=== PATIENT | male | born 1930 | race Caucasian/White ===

== ENCOUNTER → 2016-03-27 | Outpatient (CLI) | payer MEDICARE, OTHER ==
[~2016-03-27] MED LIST: ACET-2469 PO; ALLO300T2 PO; CARV3.122 PO; CHLO473M2 MM; FURO40TA4 PO; GABA-488 PO; LEVO75TA6 PO; MULT-35 PO; NF-ESOM40C PO; NIAC-4 PO; OMEG-105 PO; POTA10TA PO; RANI150T11 PO; RANI150T90 PO; SIMV20TA3 PO; SPIR25TA3 PO; WARF-48 PO
--- NOTE | 2016-03-27 11:18 | Diagnostic Imaging Report ---
3 views of the right toes. 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 No prior studies are available for comparison. FINDINGS: There is a marker at site of an ulcer at the dorsal aspect of the second toe at the level of the head of the middle phalanx. There is a flexion deformity at the DIP joint which limits evaluation of the distal phalanx on the AP and oblique projections. No definite bone destruction is seen. There are degenerative changes in the interphalangeal joints and the first MTP joint. No acute fracture or dislocation seen. IMPRESSION: Limited evaluation due to flexion deformities at the toes with no definite bone destruction or periosteal reaction seen. Dictated by: Dictated on workstation # [id number]
== END ==
LOC: RAD 10:29
PROVIDERS: ATTEND Internal Medicine
DX: L97.512 Non-pressure chronic ulcer of other part of right foot with fat layer exposed (principal); E11.621 Type 2 diabetes mellitus with foot ulcer; I70.235 Atherosclerosis of native arteries of right leg with ulceration of other part of foot
CPT/HCPCS: 73660

== ENCOUNTER 2016-05-01 09:11 | Outpatient (RCR) | payer MEDICARE, OTHER ==
[2016-05-05] MEDS ORDERED: NF-ESOM40C PO (10:59)
[2016-05-05] MEDS ORDERED: NIAC-4 PO (10:59)
[2016-05-05] MEDS ORDERED: OMEG-105 PO (10:59)
[2016-05-05] MEDS ORDERED: ALLO300T2 PO (10:59)
[2016-05-05] MEDS ORDERED: GABA-488 PO ×2 (10:59)
[2016-05-05] MEDS ORDERED: SIMV20TA3 PO (10:59)
[2016-05-05] MEDS ORDERED: CARV3.122 PO (10:59)
[2016-05-05] MEDS ORDERED: LEVO75TA6 PO (10:59)
[2016-05-05] MEDS ORDERED: FURO40TA4 PO (10:59)
[2016-05-05] MEDS ORDERED: MULT-35 PO (10:59)
[2016-05-05] MEDS ORDERED: RANI150T11 PO (10:59)
[2016-05-05] MEDS ORDERED: CHLO473M2 MM (10:59)
[2016-05-05] MEDS ORDERED: ACET-2469 PO (10:59)
[2016-05-05] MEDS ORDERED: POTA10TA PO (10:59)
[2016-05-05] MEDS ORDERED: RANI150T90 PO (10:59)
[2016-05-05] MEDS ORDERED: SPIR25TA3 PO (10:59)
[2016-05-05] MEDS ORDERED: WARF-48 PO ×2 (10:59)
== END 2016-05-11 16:00 | disposition home or self-care (01) ==
LOC: WOUNDCARE 09:11
PROVIDERS: ATTEND Internal Medicine
DX: E11.621 Type 2 diabetes mellitus with foot ulcer (principal); L97.512 Non-pressure chronic ulcer of other part of right foot with fat layer exposed; I70.235 Atherosclerosis of native arteries of right leg with ulceration of other part of foot
CPT/HCPCS: 11042; 73660; 87070; 87075; 87205

== ENCOUNTER 2016-05-04 18:19 | Inpatient (IN) | payer MEDICARE, OTHER ==
[~2016-05-04] VITALS: Ht 188 cm; Wt 110.9 kg
--- OUTSIDE RECORDS SUMMARY | 2016-05-04 18:23 | XMS REPORT | Continuity of Care Document ---
Author Author [facility] Organization [facility] Address Unknown Phone Unavailable Allergies Active Description Code Type Severity Reaction Onset Reported/Identified Relationship to Patient Clinical Status Yes diltiazem HCl [id number] Drug Allergy Unknown N/A 02/28/2011 Medications Problems Date Dx Coded Attending Type Code Diagnosis Diagnosed By 02/28/2011 Ot 528.9 ORAL SOFT TISSUE DIS NEC 02/28/2011 Ot V58.61 ANTICOAGULANTS,LT,CURRENT USE 02/28/2011 Ot V58.66 LONG-TERM (CURRENT) USE OF ASPIRIN 07/04/2014 Ot 429.3 07/04/2014 Ot 518.0 07/04/2014 Ot 786.2 07/04/2014 Ot 287.5 07/04/2014 Ot V58.69 07/04/2014 Ot 414.8 07/04/2014 Ot 427.31 07/04/2014 Ot 428.0 07/04/2014 Ot 285.9 07/04/2014 Ot 429.3 07/04/2014 Ot 518.0 07/04/2014 Ot 786.2 07/04/2014 Ot 287.5 07/04/2014 Ot V58.69 07/04/2014 Ot 414.8 07/04/2014 Ot 427.31 07/04/2014 Ot 428.0 07/04/2014 Ot 285.9 08/04/2014 NORA ROD CRANE SERVICE TECHNICIAN Ot 429.3 08/04/2014 NORA ROD CRANE SERVICE TECHNICIAN Ot 780.60 08/04/2014 NORA ROD CRANE SERVICE TECHNICIAN Ot 786.2 08/09/2014 NORA ROD CRANE SERVICE TECHNICIAN Ot 429.3 08/09/2014 NORA ROD CRANE SERVICE TECHNICIAN Ot 780.60 08/09/2014 NORA ROD CRANE SERVICE TECHNICIAN Ot 786.2 08/21/2014 DIAMOND AREVALO, BROOKLYN Myers Ot 486 09/05/2014 BROOKLYN FIELDS MD Ot 486 10/11/2014 DIAMOND AREVALO, BROOKLYN Myers Ot 786.50 10/11/2014 BROOKLYN FIELDS MD Ot E000.8 10/11/2014 BROOKLYN FIELDS MD Ot E888.9 11/02/2014 BROOKLYN FIELDS MD Ot 786.50 11/02/2014 BROOKLYN FIELDS MD Ot E000.8 11/02/2014 BROOKLYN FIELDS MD Ot E888.9 11/22/2014 BROOKLYN FIELDS MD Ot 429.3 11/22/2014 BROOKLYN FIELDS MD Ot 511.9 12/15/2014 BROOKLYN FIELDS MD Ot 429.3 12/15/2014 BROOKLYN FIELDS MD Ot 511.9 08/17/2015 BROOKLYN FIELDS MD Ot R05 COUGH 09/05/2015 BROOKLYN FIELDS MD Ot R05 COUGH 10/30/2015 BROOKLYN FIELDS MD Ot R05 COUGH 12/12/2015 Ot 285.9 ANEMIA NOS 12/12/2015 NORA ROD CRANE SERVICE TECHNICIAN Ot 429.3 CARDIOMEGALY 12/12/2015 NORA ROD CRANE SERVICE TECHNICIAN Ot 780.60 FEVER, UNSPECIFIED 12/12/2015 NORA ROD CRANE SERVICE TECHNICIAN Ot 786.2 COUGH 12/12/2015 BROOKLYN FIELDS MD Ot 486 PNEUMONIA, ORGANISM NOS 12/12/2015 BROOKLYN FIELDS MD Ot 786.50 CHEST PAIN NOS 12/12/2015 BROOKLYN FIELDS MD Ot E000.8 OTHER EXTERNAL CAUSE STATUS 12/12/2015 BROOKLYN FIELDS MD Ot E888.9 FALL NOS 12/12/2015 BROOKLYN FIELDS MD Ot 793.19 OTHER NONSPECIFIC ABNORMAL FINDING OF FREDIS 12/12/2015 BROOKLYN FIELDS MD Ot 429.3 CARDIOMEGALY 12/12/2015 BROOKLYN FIELDS MD Ot 511.9 PLEURAL EFFUSION NOS 12/12/2015 BROOKLYN FIELDS MD Ot R05 COUGH 01/03/2016 ANITRA SHI Ot J98.11 ATELECTASIS 01/03/2016 ANITRA SHI Ot R05 COUGH 01/03/2016 ANITRA SHI Ot R07.89 OTHER CHEST PAIN 01/03/2016 ANITRA SHI Ot Z91.81 HISTORY OF FALLING 01/04/2016 Ot 285.9 ANEMIA NOS 01/04/2016 NORA ROD CRANE SERVICE TECHNICIAN Ot 429.3 CARDIOMEGALY 01/04/2016 NORA ROD CRANE SERVICE TECHNICIAN Ot 780.60 FEVER, UNSPECIFIED 01/04/2016 NORA ROD CRANE SERVICE TECHNICIAN Ot 786.2 COUGH 01/04/2016 BROOKLYN FIELDS MD Ot 486 PNEUMONIA, ORGANISM NOS 01/04/2016 BROOKLYN FIELDS MD Ot 786.50 CHEST PAIN NOS 01/04/2016 BROOKLYN FIELDS MD Ot E000.8 OTHER EXTERNAL CAUSE STATUS 01/04/2016 BROOKLYN FIELDS MD Ot E888.9 FALL NOS 01/04/2016 BROOKLYN FIELDS MD Ot 793.19 OTHER NONSPECIFIC ABNORMAL FINDING OF FREDIS 01/04/2016 BROOKLYN FIELDS MD Ot 429.3 CARDIOMEGALY 01/04/2016 BROOKLYN FIELDS MD Ot 511.9 PLEURAL EFFUSION NOS 01/04/2016 BROOKLYN FIELDS MD Ot R05 COUGH 01/04/2016 LAITH SHIEN L Ot J98.11 ATELECTASIS 01/04/2016 ANITRA SHI L Ot R05 COUGH 01/04/2016 ANITRA SHI Ot R07.89 OTHER CHEST PAIN 01/04/2016 ANITRA SHI L Ot Z91.81 HISTORY OF FALLING 01/08/2016 LAITH SHIEN L Ot J98.11 ATELECTASIS 01/08/2016 LAITH SHIEN L Ot R05 COUGH 01/08/2016 LAITH SHIEN L Ot R07.89 OTHER CHEST PAIN 01/08/2016 LAITH SHIEN L Ot Z91.81 HISTORY OF FALLING 01/08/2016 LAITH SHIEN L Ot J98.11 ATELECTASIS 01/08/2016 LAITH SHIEN L Ot R05 COUGH 01/08/2016 LAITH SHIEN L Ot R07.89 OTHER CHEST PAIN 01/08/2016 LAITH SHIEN L Ot Z91.81 HISTORY OF FALLING 01/11/2016 Ot 285.9 ANEMIA NOS 01/11/2016 NORA ROD CRANE SERVICE TECHNICIAN Ot 429.3 CARDIOMEGALY 01/11/2016 NORA ROD CRANE SERVICE TECHNICIAN Ot 780.60 FEVER, UNSPECIFIED 01/11/2016 NORA ROD CRANE SERVICE TECHNICIAN Ot 786.2 COUGH 01/11/2016 BROOKLYN FIELDS MD Ot 486 PNEUMONIA, ORGANISM NOS 01/11/2016 BROOKLYN FIELDS MD Ot 786.50 CHEST PAIN NOS 01/11/2016 BROOKLYN FIELDS MD Ot E000.8 OTHER EXTERNAL CAUSE STATUS 01/11/2016 BROOKLYN FIELDS MD Ot E888.9 FALL NOS 01/11/2016 BROOKLYN FIELDS MD Ot 793.19 OTHER NONSPECIFIC ABNORMAL FINDING OF FREDIS 01/11/2016 BROOKLYN FIELDS MD Ot 429.3 CARDIOMEGALY 01/11/2016 BROOKLYN FIELDS MD Ot 511.9 PLEURAL EFFUSION NOS 01/11/2016 BROOKLYN FIELDS MD Ot R05 COUGH 01/11/2016 ANITRA SHI Ot J98.11 ATELECTASIS 01/11/2016 ANITRA SHI Ot R05 COUGH 01/11/2016 ANITRA SHI Ot R07.89 OTHER CHEST PAIN 01/11/2016 ANITRA SHI Ot Z91.81 HISTORY OF FALLING 01/14/2016 ANITRA SHI Ot J18.9 PNEUMONIA, UNSPECIFIED ORGANISM 01/14/2016 ANITRA SHI Ot J90 PLEURAL EFFUSION, NOT ELSEWHERE CLASSIFI 01/24/2016 ANITRA SHI Ot J98.11 ATELECTASIS 01/24/2016 ANITRA SHI Ot R05 COUGH 01/24/2016 ANITRA SHI Ot R07.89 OTHER CHEST PAIN 01/24/2016 ANITRA SHI Ot Z91.81 HISTORY OF FALLING 02/06/2016 ANITRA SHI Ot J18.9 PNEUMONIA, UNSPECIFIED ORGANISM 02/06/2016 ANITRA SHI Ot J90 PLEURAL EFFUSION, NOT ELSEWHERE CLASSIFI 02/19/2016 ANITRA SHI Ot J98.11 ATELECTASIS 02/19/2016 ANITRA SHI Ot R05 COUGH 02/19/2016 ANITRA SHI Ot R07.89 OTHER CHEST PAIN 02/19/2016 ANITRA SHI Ot Z91.81 HISTORY OF FALLING 02/19/2016 ANITRA SHI Ot J18.9 PNEUMONIA, UNSPECIFIED ORGANISM 02/19/2016 ANITRA SHI Ot J90 PLEURAL EFFUSION, NOT ELSEWHERE CLASSIFI 03/27/2016 Ot 285.9 ANEMIA NOS 03/27/2016 NORA ROD CRANE SERVICE TECHNICIAN Ot 429.3 CARDIOMEGALY 03/27/2016 MARCEL, NORA R CRANE SERVICE TECHNICIAN Ot 780.60 FEVER, UNSPECIFIED 03/27/2016 NORA ROD CRANE SERVICE TECHNICIAN Ot 786.2 COUGH 03/27/2016 BROOKLYN FIELDS MD Ot 486 PNEUMONIA, ORGANISM NOS 03/27/2016 BROOKLYN FIELDS MD Ot 786.50 CHEST PAIN NOS 03/27/2016 BROOKLYN FIELDS MD Ot E000.8 OTHER EXTERNAL CAUSE STATUS 03/27/2016 BROOKLYN FIELDS MD Ot E888.9 FALL NOS 03/27/2016 BROOKLYN FIELDS MD Ot 793.19 OTHER NONSPECIFIC ABNORMAL FINDING OF FREDIS 03/27/2016 BROOKLYN FIELDS MD Ot 429.3 CARDIOMEGALY 03/27/2016 BROOKLYN FIELDS MD Ot 511.9 PLEURAL EFFUSION NOS 03/27/2016 BROOKLYN FIELDS MD Ot R05 COUGH 03/27/2016 ANITRA SHI Ot J98.11 ATELECTASIS 03/27/2016 ANITRA SHI Ot R05 COUGH 03/27/2016 ANITRA SHI Ot R07.89 OTHER CHEST PAIN 03/27/2016 ANITRA SHI Ot Z91.81 HISTORY OF FALLING 03/27/2016 ANITRA SHI Ot J18.9 PNEUMONIA, UNSPECIFIED ORGANISM 03/27/2016 ANITRA SHI Ot J90 PLEURAL EFFUSION, NOT ELSEWHERE CLASSIFI 04/17/2016 BROOKLYN FIELDS MD Ot E11.621 TYPE 2 DIABETES MELLITUS WITH FOOT ULCER 04/17/2016 BROOKLYN FIELDS MD Ot I70.235 ATHSCL [place] ARTERIES OF RIGHT LEG W UL 04/17/2016 BROOKLYN FIELDS MD Ot 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 Visit Date/Time Discharge Status Pt. Type Provider Facility Loc./Unit Complaint [id number] 11/02/2014 11:50:00 2014 23:59:59 CLS Outpatient BROOKLYN FIELDS MD [facility] RAD PLEURAL EFFUSION [id number] 09/19/2014 12:44:00 2014 23:59:59 CLS Outpatient BROOKLYN FIELDS MD [facility] RAD ABNORMAL CHEST XRAY [id number] 09/15/2014 11:11:00 2014 23:59:59 CLS Outpatient BROOKLYN FIELDS MD [facility] RAD PAIN UNDER L BREAST POST FALL [id number] 07/31/2014 16:30:00 2014 23:59:59 CLS Outpatient BROOKLYN FIELDS MD [facility] RAD F/U PNUEMONIA [id number] 07/04/2014 15:28:00 2014 23:59:59 CLS Outpatient NORA ROD APRN [facility] RAD COUGH/FEVER [id number] 04/24/2016 09:19:00 ACT Outpatient BROOKLYN FIELDS MD [facility] WOUNDCARE [id number] 03/27/2016 10:29:00 ACT Outpatient BROOKLYN FIELDS MD [facility] RAD NON PRESSURE CHRONIC ULCER OF OTHER PART OF RT FT [id number] 01/11/2016 14:31:00 ACT Outpatient ANITRA SHI [facility] RAD LLL PNEUMONIA,COUGH [id number] 01/03/2016 17:21:00 ACT Outpatient ANITRA SHI [facility] RAD CHEST WALL PAIN,NON PROD. COUGH,FALL [id number] 08/16/2015 14:29:00 ACT Outpatient BROOKLYN FIELDS MD [facility] RAD COUGH [id number] 07/04/2014 15:25:00 Document Registration [id number] 03/17/2011 14:18:00 Document Registration [id number] 02/28/2011 10:34:00 Document Registration [id number] 03/21/2010 14:54:00 Document Registration [id number] 05/28/2009 12:45:00 Document Registration
--- NOTE | 2016-05-04 18:38 | ED General ---
General Stated Complaint: WEAKNESS Source of Information: Patient Exam Limitations: No Limitations History of Present Illness Time Seen by Provider: 18:35 Initial Comments To ER per EMS from home with reports of generalized weakness that began this morning. Patient was scheduled to have angioplasty of the lower extremities this week due to "poor blood flow" by Dr. Muller in [place]. Patient also sees Dr. Fields in the wound care clinic for wounds on 2 toes of the right foot. 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 He denies chest pain or shortness of breath. Denies abdominal pain. Denies constipation diarrhea or dysuria. No fevers or chills. He states that he is too weak to get off the toilet at home. Timing/Duration: 12-24 Hours Severity: Moderate Allergies and Home Medications Allergies Coded Allergies: diltiazem HCl (Verified Allergy, 02/28/11) Constitutional: see HPINo chills, No fever EENTM: see HPI Respiratory: no symptoms reported Cardiovascular: no symptoms reported Genitourinary: no symptoms reported Musculoskeletal: no symptoms reported Skin: no symptoms reported Psychiatric/Neurological: No Symptoms Reported Hematologic/Lymphatic: No Symptoms Reported Immunological/Allergic: no symptoms reported Physical Exam Vital Signs Vital Sign - Last 12Hours 05/04/16 18:20 Temp 97.3 Pulse 76 Resp 24 B/P 110/53 Pulse Ox 88 O2 Delivery Room Air Capillary Refill : General Appearance: No Apparent Distress WD/WN Eyes: Bilateral Eye Normal Inspection, Bilateral Eye PERRL HEENT: PERRL/EOMI TMs Normal Neck: Full Range of Motion Normal Inspection Other (minor jugular vein distention) Respiratory: Lungs Clear Normal Breath Sounds No Accessory Muscle Use No Respiratory Distress Cardiovascular: Regular Rate, Rhythm Normal Peripheral Pulses Gastrointestinal: Normal Bowel Sounds Non Tender Soft Hepatomegaly Extremity: Pedal Edema (3+ bilaterally) Neurologic/Psychiatric: Alert Oriented x3 No Motor/Sensory Deficits Skin: Normal Color Warm/Dry Progress/Results/Core Measures Results/Orders Lab Results Laboratory Tests Test 05/04/16 18:33 Range/Units Alanine Aminotransferase (ALT/SGPT) 15 0-55 U/L Albumin 3.1 L 3.2-4.5 G/DL Alkaline Phosphatase 299 H 40-136 U/L Anion Gap 15 H 5-14 MMOL/L Anisocytosis MARKED Aspartate Amino Transf (AST/SGOT) 44 H 5-34 U/L B-Type Natriuretic Peptide 447.4 H <100.0 PG/ML BUN/Creatinine Ratio 21 Band Neutrophils 4 % Basophils # (Auto) 0.0 0.0-0.1 10^3/uL Basophils % (Manual) 0 % Basophils (%) (Auto) 0 0-10 % Blood Urea Nitrogen 31 H 7-18 MG/DL Calcium Level 9.3 8.5-10.1 MG/DL Carbon Dioxide Level 20 L 21-32 MMOL/L Chloride Level 101 98-107 MMOL/L Creatinine 1.45 H 0.60-1.30 MG/DL Eosinophils # (Auto) 0.0 0.0-0.3 10^3/uL Eosinophils % (Manual) 0 % Eosinophils (%) (Auto) 0 0-10 % Estimat Glomerular Filtration Rate 46 Glucose Level 103 70-105 MG/DL Hematocrit 36 L 40-54 % Hemoglobin 10.9 L 13.3-17.7 G/DL INR Comment 2.6 H 0.8-1.4 Lipase 9 8-78 U/L Lymphocytes # (Auto) 0.9 L 1.0-4.0 X 10^3 Lymphocytes % (Manual) 9 % Lymphocytes (%) (Auto) 8 L 12-44 % Mean Corpuscular Hemoglobin 26 25-34 PG Mean Corpuscular Hemoglobin Concent 31 L 32-36 G/DL Mean Corpuscular Volume 84 80-99 FL Mean Platelet Volume 11.4 H 7.4-10.4 FL Monocytes # (Auto) 0.6 0.0-1.0 X 10^3 Monocytes % (Manual) 2 % Monocytes (%) (Auto) 5 0-12 % Neutrophils # (Auto) 10.1 H 1.8-7.8 X 10^3 Neutrophils % (Manual) 85 % Neutrophils (%) (Auto) 87 H 42-75 % Platelet Count 167 130-400 10^3/uL Potassium Level 4.5 3.6-5.0 MMOL/L Prothrombin Time 27.8 H 12.2-14.7 SEC Red Blood Count 4.24 L 4.35-5.85 10^6/uL Red Cell Distribution Width 18.1 H 10.0-14.5 % Sodium Level 136 135-145 MMOL/L Total Bilirubin 1.7 H 0.1-1.0 MG/DL Total Protein 6.6 6.4-8.2 G/DL Troponin I < 0.30 <0.30 NG/ML White Blood Count 11.7 H 4.3-11.0 10^3/uL My Orders Orders-RYAN PETTY APRN Cbc With Automated Diff (05/04/16 18:34) Protime With Inr (05/04/16 18:34) Comprehensive Metabolic Panel (05/04/16 18:34) Lipase (05/04/16 18:34) BNP (05/04/16 18:34) Chest 1 View, Ap/Pa Only (05/04/16 18:34) Ua Culture If Indicated (05/04/16 18:34) Troponin I (05/04/16 18:34) Ekg Tracing (05/04/16 18:34) Continuous Ekg Monitoring (05/04/16 18:34) Manual Differential (05/04/16 18:33) Saline Lock/Iv-Start (05/04/16 18:55) Ct Abdomen/Pelvis Wo (05/04/16 19:16) Thyroid Stimulating Hormone (05/04/16 20:53) Free T4 (Free Thyroxine) (05/04/16 20:53) Vital Signs/I&O Vital Sign - Last 12Hours 05/04/16 18:20 Temp 97.3 Pulse 76 Resp 24 B/P 110/53 Pulse Ox 88 O2 Delivery Room Air Diagnostic Imaging Diagonstic Imaging: Xray Plain Films/CT/US/NM/MRI: chest Comments NAME: SILVERIOLONG Reich [facility] REC#: [id number] PT STATUS: REG ER : 1930 PHYSICIAN: RYAN PETTY APRN ADMIT DATE: 05/04/16/ER Draft Date of Exam:05/04/16 CHEST 1 VIEW, AP/PA ONLY Indication: Weakness. Dyspnea. Discussion: Single portable upright view of the chest was obtained, comparison 01/11/2016. Cardiomegaly is stable. Mild prominence of the central pulmonary vascularity though no jhony pulmonary edema identified. Median sternotomy and left-sided pacemaker are stable. Small left pleural effusion with left lung base opacities, atelectasis and/or pneumonia. No osseous abnormality. Impression: 1. Cardiomegaly without jhony failure. 2. Small left pleural effusion with left lung base opacities. Dictated on workstation # [id number] Dict: 05/04/161919 Trans: 05/04/161921 PJE [id number] Interpreted by: ISAAC ALONZO MD Electronically signed by: NAME: LONG SAWYER [facility] REC#: [id number] PT STATUS: REG ER : 1930 PHYSICIAN: RYAN PETTY SENIOR TALENT MANAGEMENT CONSULTANT ADMIT DATE: 05/04/16/ER Draft Date of Exam:05/04/16 CT ABDOMEN/PELVIS WO Procedure: CT abdomen and pelvis without contrast. Technique: Multiple contiguous axial images were obtained through the abdomen and pelvis without the use of intravenous contrast. Indication: Jaundice, generalized weakness. Comparison: None. Discussion: Trace bilateral pleural effusions are present. Bibasilar opacities are nonspecific though could be seen with atelectasis and/or pneumonia. Cardiomegaly is incompletely viewed. The liver is diffusely heterogenous with innumerable low-attenuation masses present throughout. Findings are nonspecific on this noncontrast exam though highly concerning for advanced metastatic disease. Recommend clinical correlation. The gallbladder is surgically absent. Prominent lymph nodes within the haroon hepatis. Fatty atrophy of the pancreas. The spleen is unremarkable. The bilateral adrenal glands are unremarkable. Mild ascites. Anasarca is also present. No hydronephrosis. Probable cyst within the left kidney though exam is limited due to lack of IV contrast. Sigmoid diverticulosis with no secondary evidence for diverticulitis. No obstruction, pneumatosis or pneumoperitoneum. No acute osseous abnormality identified. Degenerative changes are present within the lumbar spine. Impression: 1. Innumerable low-attenuation masses within the liver is incompletely viewed on this noncontrast exam though it should be considered metastatic disease until proven otherwise. 2. Cardiomegaly with small bilateral pleural effusions. Additional mild ascites and diffuse anasarca. 3. Diverticulosis. 4. Indeterminate cystic focus within the left kidney. Recommend renal ultrasound for further evaluation. Dictated on workstation # [id number] Dict: 05/04/162015 Trans: 05/04/162024 PJE [id number] Interpreted by: ISAAC ALONZO MD Electronically signed by: Departure Communication Time/Spoke to Admitting Phy: 20:47 Communication I did discuss the case with Dr. Gonzales. We will admit the patient with liver failure, cardiology consult and oncology consult. Time/Spoke to Consulting Physi: 21:41 Communication/Consulting I consulted Dr quinteros, request for CT chest. Consulted Dr Cartwright who agrees to consult. Progress Notes I discussed DO NOT RESUSCITATE versus full CODE STATUS with the patient. He was undecided. His is at the bedside. I did advise them of the likely poor prognosis even if CPR was initiated. He states that he would not want to be kept alive on a ventilator and as such would like to be a DO NOT RESUSCITATE status. Impression Impression: Primary Impression: Liver failure Additional Impressions: Liver metastasis Renal insufficiency Disposition: ADMITTED INPATIENT Condition: Stable Decision to Admit Reason: Admit from ER (General) Decision to Admit/Date: May 04, 2016 Time/Decision to Admit Time: 20:49 Departure-Patient Inst. Referrals: BROOKLYN FIELDS MD (PCP/Family) Primary Care Physician RYAN PETTY APRN May 04, 2016 18:37
[2016-05-04 18:44] LABS: BASOPHILS % (AUTO) 0 % (0-10); EOSINOPHILS % (AUTO) 0 % (0-10); LYMPHOCYTES # (AUTO) 0.9 X 10^3 (1.0-4.0); LYMPHOCYTES % (AUTO) 8 % (12-44); MEAN CORPUSCULAR HEMOGLOBIN 26 PG (25-34); MEAN CORPUSCULAR HGB CONC 31 G/DL (32-36); MEAN CORPUSCULAR VOLUME 84 FL (80-99); MEAN PLATELET VOLUME 11.4 FL (7.4-10.4); MONOCYTES # (AUTO) 0.6 X 10^3 (0.0-1.0); MONOCYTES % (AUTO) 5 % (0-12); NEUTROPHILS # (AUTO) 10.1 X 10^3 (1.8-7.8); NEUTROPHILS % (AUTO) 87 % (42-75); PLATELET COUNT 167 10^3/uL (130-400); RED BLOOD COUNT 4.24 10^6/uL (4.35-5.85); RED CELL DISTRIBUTION WIDTH 18.1 % (10.0-14.5); WHITE BLOOD COUNT 11.7 10^3/uL (4.3-11.0)
[2016-05-04 18:54] LABS: INR 2.6 (0.8-1.4); PROTHROMBIN TIME PATIENT 27.8 SEC (12.2-14.7)
[2016-05-04 19:08] LABS: BAND NEUTROPHILS 4 %; BASOPHILS % (MANUAL) 0 %; EOSINOPHILS % (MANUAL) 0 %; LYMPHOCYTES % (MANUAL) 9 %; NEUTROPHILS % (MANUAL) 85 %
[2016-05-04 19:09] LABS: ALANINE AMINOTRANSFERASE 15 U/L (0-55); ALBUMIN 3.1 G/DL (3.2-4.5); ANION GAP 15 MMOL/L (5-14); ANISOCYTOSIS MARKED; ASPARTATE AMINO TRANSFERASE 44 U/L (5-34); BILIRUBIN,TOTAL 1.7 MG/DL (0.1-1.0); BLOOD UREA NITROGEN 31 MG/DL (7-18); BUN/CREATININE RATIO 21; CALCIUM 9.3 MG/DL (8.5-10.1); CARBON DIOXIDE 20 MMOL/L (21-32); CHLORIDE 101 MMOL/L (98-107); CREATININE SERUM 1.45 MG/DL (0.60-1.30); GFR ESTIMATED 46; GLUCOSE 103 MG/DL (70-105); LIPASE 9 U/L (8-78); POTASSIUM 4.5 MMOL/L (3.6-5.0); SODIUM 136 MMOL/L (135-145); TOTAL PROTEIN 6.6 G/DL (6.4-8.2)
[2016-05-04 19:14] LABS: TROPONIN I < 0.30 NG/ML (<0.30)
--- NOTE | 2016-05-04 19:22 | Diagnostic Imaging Report ---
Indication: Weakness. Dyspnea. Discussion: Single portable upright view of the chest was obtained, comparison 01/11/2016. Cardiomegaly is stable. Mild prominence of the central pulmonary vascularity though no jhony pulmonary edema identified. Median sternotomy and left-sided pacemaker are stable. Small left pleural effusion with left lung base opacities, atelectasis and/or pneumonia. No osseous abnormality. Impression: 1. Cardiomegaly without jhony failure. 2. Small left pleural effusion with left lung base opacities. Dictated by: Dictated on workstation # [id number]
--- NOTE | 2016-05-04 20:25 | Diagnostic Imaging Report ---
Procedure: CT abdomen and pelvis without contrast. Technique: Multiple contiguous axial images were obtained through the abdomen and pelvis without the use of intravenous contrast. Indication: Jaundice, generalized weakness. Comparison: None. Discussion: Trace bilateral pleural effusions are present. Bibasilar opacities are nonspecific though could be seen with atelectasis and/or pneumonia. Cardiomegaly is incompletely viewed. The liver is diffusely heterogenous with innumerable low-attenuation masses present throughout. Findings are nonspecific on this noncontrast exam though highly concerning for advanced metastatic disease. Recommend clinical correlation. The gallbladder is surgically absent. Prominent lymph nodes within the haroon hepatis. Fatty atrophy of the pancreas. The spleen is unremarkable. The bilateral adrenal glands are unremarkable. Mild ascites. Anasarca is also present. No hydronephrosis. Probable cyst within the left kidney though exam is limited due to lack of IV contrast. Sigmoid diverticulosis with no secondary evidence for diverticulitis. No obstruction, pneumatosis or pneumoperitoneum. No acute osseous abnormality identified. Degenerative changes are present within the lumbar spine. Impression: 1. Innumerable low-attenuation masses within the liver is incompletely viewed on this noncontrast exam though it should be considered metastatic disease until proven otherwise. 2. Cardiomegaly with small bilateral pleural effusions. Additional mild ascites and diffuse anasarca. 3. Diverticulosis. 4. Indeterminate cystic focus within the left kidney. Recommend renal ultrasound for further evaluation. Dictated by: Dictated on workstation # [id number]
[2016-05-04 21:41] LABS: THYROID STIMULATING HORMONE 0.41 UIU/ML (0.35-4.94)
[2016-05-04 22:40] VITALS: BP 118/66
[2016-05-04] MEDS ORDERED: NS IV 1000 ML 1,000 ML ONE (22:56)
[2016-05-04] MEDS: NS IV 1000 ML 1,000 ML IV SCH (23:17)
[2016-05-05 04:00] VITALS: BP 118/58
[2016-05-05 08:00] VITALS: BP 114/64
[2016-05-05] MEDS ORDERED: FUROSEMIDE 40 MG (LASIX) TAB PO SCH ×2 (09:00→21:00)
--- NOTE | 2016-05-05 09:27 | Diagnostic Imaging Report ---
PROCEDURE: CT chest without contrast. TECHNIQUE: Multiple contiguous axial images were obtained through the chest without the use of intravenous contrast. INDICATION: Evaluation for metastatic disease. Numerous liver metastases seen on CT abdomen pelvis from prior day. COMPARISON: CT abdomen pelvis of prior day. FINDINGS: Lungs and airway: No endoluminal lesion in the trachea or central bronchi. Multiple round pulmonary nodules within the right middle and lower lobe are concerning for metastatic disease. These range in size from 3-10 mm. Subtotal atelectasis within the lingula and left lower lobe. There is also linear atelectasis in the right lower lobe. Pleura: Small bilateral pleural effusions. No pneumothorax. Heart and mediastinum: No supraclavicular or axillary lymphadenopathy. Visualized thyroid is normal. No mediastinal or juxtaphrenic lymphadenopathy. No discrete hilar lymphadenopathy, although evaluation is limited without IV contrast. Marked cardiomegaly with changes of CABG. No pericardial effusion. Normal caliber thoracic aorta with scattered atherosclerotic calcified plaques. Upper abdomen: Demonstration of numerous rounded hypodensities throughout the liver most compatible with metastasis. Please see CT abdomen pelvis report from prior day for more complete details. Musculoskeletal: No blastic or lytic osseous lesions to suggest skeletal metastases in the thorax. No compression fracture in the thoracic spine. IMPRESSION: 1. Multiple rounded nodules in the right lung base are most compatible with metastatic disease given numerous liver metastasis. 2. No evidence of primary neoplastic process in the chest by noncontrast imaging. 3. Cardiomegaly with small bilateral pleural effusions. Subtotal relaxation atelectasis in the lung bases. Dictated by: Dictated on workstation # [id number]
[2016-05-05] MEDS: CARVEDILOL 3.125 MG (COREG) TABLET PO SCH ×2 (10:15→21:23)
[2016-05-05] MEDS: SPIRONOLACTONE 25 MG (ALDACTONE) TAB PO SCH ×2 (10:16→21:24)
[2016-05-05] MEDS: KCL 20 MEQ TAB (K-DUR) PO SCH ×2 (10:16→21:23)
[2016-05-05] MEDS ORDERED: RANI150T11 PO (10:59)
[2016-05-05] MEDS ORDERED: CHLO473M2 MM (10:59)
[2016-05-05] MEDS ORDERED: SPIR25TA3 PO (10:59)
[2016-05-05] MEDS ORDERED: OMEG-105 PO (10:59)
[2016-05-05] MEDS ORDERED: MULT-35 PO (10:59)
[2016-05-05] MEDS ORDERED: SIMV20TA3 PO (10:59)
[2016-05-05] MEDS ORDERED: ALLO300T2 PO (10:59)
[2016-05-05] MEDS ORDERED: ACET-2469 PO (10:59)
[2016-05-05] MEDS ORDERED: LEVO75TA6 PO (10:59)
[2016-05-05] MEDS ORDERED: NIAC-4 PO (10:59)
[2016-05-05] MEDS ORDERED: CARV3.122 PO (10:59)
[2016-05-05] MEDS ORDERED: GABA-488 PO ×2 (10:59)
[2016-05-05] MEDS ORDERED: NF-ESOM40C PO (10:59)
[2016-05-05] MEDS ORDERED: RANI150T90 PO (10:59)
[2016-05-05] MEDS ORDERED: POTA10TA PO (10:59)
[2016-05-05] MEDS ORDERED: WARF-48 PO ×2 (10:59)
[2016-05-05] MEDS ORDERED: FURO40TA4 PO (10:59)
[2016-05-05 12:00] VITALS: BP 131/71
--- NOTE | 2016-05-05 12:25 | History & Physical-Hospitalist ---
HPI History of Present Illness: HPI/Chief Complaint The patient is a gentleman only 86-year-old white male. His family has been known to me for some years. He presented to the emergency room late yesterday afternoon with complaints of generalized weakness. He has multiple vascular problems. He has been seeing wound care. His right second toe has been ulcerated for some time and he was to see a vascular surgeon in [place] tomorrow for consideration of revascularization. He also has a 5 cm abdominal aortic aneurysm which is considered inoperable because of his general health. 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 He is a DO NOT RESUSCITATE because of age and and general state of health. During his workup in the emergency room CT scan showed multiple nodules of varying size in the liver consistent with malignancy. There is no known primary. Source: patient Exam Limitations: no limitations Date Seen 05/05/16 Attending Physician Lisa Gonzales John D MD Referring Physician Date of Admission May 04, 2016 at 20:49 Home Medications & Allergies Home Medications Reviewed patient Home Medication Reconciliation Form Allergies Coded Allergies: diltiazem HCl (Verified Allergy, Unknown, 05/04/16) Past [place]-Bivkir-Gaknjl Hx Patient Social History Alcohol Use: Occasionally Uses Recreational Drug Use: No Smoking Status: Never a Smoker Type Used: Smokeless Tobacco 2nd Hand Smoke Exposure: No Recent Foreign Travel: No Contact w/other who traveled: No Recent Hopitalizations: No Recent Infectious Disease Expo: No Immunizations Up To Date Date of Pneumonia Vaccine: Nov 23, 2014 Seasonal Allergies Seasonal Allergies: No Surgeries HX Surgeries: Yes (MULTIPLE, BUT PT UNABLE TO SPECIFY AT THIS TIME) Surgeries: CABG, Defibrillator, Gallbladder, Orthopedic Respiratory Hx Respiratory Disorders: No Cardiovascular Hx Cardiovascular Disorders: Yes Cardiac Disorders: Hypertension Neurological Hx Neurological Disorders: Yes Neurological Disorders: Neuropathy Genitourinary Hx Genitourinary Disorders: No Genitourinary Disorders: Kidney Stones Gastrointestinal Hx Gastrointestinal Disorders: Yes Gastrointestinal Disorders: Gastroesophageal Reflux, Polyps Musculoskeletal Hx Musculoskeletal Disorders: Yes Endocrine Hx Endocrine Disorders: Yes Endocrine Disorders: Hypothyroidsim Cancer Hx Cancer: No Psychosocial Hx Psychiatric Problems: No Integumentary Skin/Integumentary Disorders: Recent Skin Changes Review of Systems Constitutional: see HPI EENTM: no symptoms reported Respiratory: no symptoms reported Cardiovascular: no symptoms reported Gastrointestinal: no symptoms reported Genitourinary: other (urethral stricture and hesitancy) Skin: other Psychiatric/Neurological: No Symptoms Reported Physical Exam Physical Exam Vital Signs Vital Sign - Last 12Hours 05/04/16 05/04/16 18:20 22:40 Temp 97.3 Pulse 76 Resp 24 B/P 110/53 Pulse Ox 88 O2 Delivery Room Air O2 Flow Rate 2.00 Capillary Refill : Less Than 3 Seconds General Appearance: No Apparent Distress WD/WN Eyes: Bilateral Eye Normal Inspection Neck: Full Range of Motion Normal Inspection Non Tender Supple Carotid Bruit Respiratory: Chest Non Tender Lungs Clear Normal Breath Sounds No Accessory Muscle Use No Respiratory Distress Cardiovascular: Regular Rate, Rhythm No Edema No Gallop No JVD No Murmur Normal Peripheral Pulses Gastrointestinal: Normal Bowel Sounds No Organomegaly No Pulsatile Mass Non Tender Soft Other Back: Normal Inspection No CVA Tenderness No Vertebral Tenderness Neurologic/Psychiatric: Alert Oriented x3 No Motor/Sensory Deficits Normal Mood/Affect Comments There is a fresh dressing on the right second toe. Pedal pulses are not palpable. The foot is warm. Capillary refill appears slow. Results Results/Procedures Lab Laboratory Tests 05/04/16 18:33 Assessment/Plan Admission Diagnosis 1.multiple radiolucent nodules in the liver consistent with metastasis from unknown primary. 2.abdominal aortic aneurysm. 3.nonhealing ulcer right foot Assessment and Plan The CT scans were shown to the patient at bedside. He is already a previously established DO NOT RESUSCITATE. I informed him that it would be relatively easy to perform a needle biopsy to learn more about the tumor. He reported that he did not see much value in that other than academic. Accordingly hospice/palliative care consultation has been ordered. LULU BRO MD May 05, 2016 12:25
[2016-05-05] MEDS: NS IV 1000 ML 1,000 ML IV SCH (14:14)
[2016-05-05] MEDS ORDERED: CATHETER FLUSH 10 ML SYR IV PRN (14:45)
[2016-05-05 16:00] VITALS: BP 127/67
[2016-05-05] MEDS ORDERED: warFARin 5 MG (COUMADIN) TAB PO SCH (18:00)
[2016-05-05] MEDS: FUROSEMIDE 40 MG (LASIX) TAB PO SCH (18:55)
[2016-05-05 20:00] VITALS: BP 133/76
[2016-05-05] MEDS ORDERED: KCL 10 MEQ TAB (MICRO K) PO SCH (21:00)
[2016-05-05] MEDS ORDERED: raNItidine (ZANTAC) 150 MG TAB NON-FORMULARY PO SCH (21:00)
[2016-05-05] MEDS ORDERED: SPIRONOLACTONE 25 MG (ALDACTONE) TAB PO SCH (21:00)
[2016-05-05] MEDS ORDERED: CARVEDILOL 3.125 MG (COREG) TABLET PO SCH (21:00)
[2016-05-05] MEDS: CHLORHEXIDINE 0.12% SOLN 15 ML (PERIDEX) UDC MM SCH (21:22)
[2016-05-05] MEDS: ACETAMINOPHEN 500 MG TAB (TYLENOL) PO SCH (21:22)
[2016-05-05] MEDS: diphenhydrAMINE 25 MG TAB (BENADRYL) PO SCH (21:22)
[2016-05-05] MEDS: GABAPENTIN 300 MG (NEURONTIN) CAP PO SCH (21:23)
[2016-05-05] MEDS: FAMOTIDINE 20 MG (PEPCID) TABLET PO SCH (21:24)
[2016-05-05 23:43] VITALS: BP 126/78
[2016-05-06] MEDS: NS IV 1000 ML 1,000 ML IV SCH ×2 (02:21→15:30)
[2016-05-06 04:00] VITALS: BP 140/63
[2016-05-06] MEDS: LEVOTHYROXINE 75 MCG (LEVOTHROID) TABLET PO SCH (06:19)
[2016-05-06] MEDS: FUROSEMIDE 40 MG (LASIX) TAB PO SCH ×2 (06:19→18:09)
[2016-05-06 08:00] VITALS: BP 112/59
[2016-05-06] MEDS: CHLORHEXIDINE 0.12% SOLN 15 ML (PERIDEX) UDC MM SCH ×2 (08:51→20:43)
[2016-05-06] MEDS: CARVEDILOL 3.125 MG (COREG) TABLET PO SCH ×2 (08:51→20:44)
[2016-05-06] MEDS: KCL 20 MEQ TAB (K-DUR) PO SCH ×2 (08:51→20:44)
[2016-05-06] MEDS: GABAPENTIN 300 MG (NEURONTIN) CAP PO SCH ×2 (08:51→20:43)
[2016-05-06] MEDS: SPIRONOLACTONE 25 MG (ALDACTONE) TAB PO SCH ×2 (08:52→20:44)
[2016-05-06] MEDS: ALLOPURINOL 300 MG (ZYLOPRIM) TAB PO SCH (08:57)
[2016-05-06] MEDS ORDERED: raNItidine (ZANTAC) 150 MG TAB NON-FORMULARY PO SCH (09:00)
--- NOTE | 2016-05-06 09:54 | CONSULTATION REPORT ---
DATE OF CONSULTATION: 05/05/2016 The patient is admitted to Room 419. REFERRING PHYSICIAN: Roberto Meadows M.D. PRIMARY PHYSICIAN: Cayden Mclaughlin M.D. IMPRESSION: 1. 86-year-old male, admitted to the hospital with increased weakness. 2. Numerous hypodense lesions in the liver, clinically consistent with malignancy. 3. Multiple small pulmonary nodules and bilateral pleural effusions of undetermined etiology. 4. No definite primary site identified by CT scan of the chest, abdomen and pelvis without contrast. 5. Significant coronary artery disease and peripheral vascular disease with a nonhealing ulcer in the right foot. 6. On chronic anticoagulation because of peripheral vascular disease. RECOMMENDATIONS: 1. Consider CT guided biopsy of the liver for tissue diagnosis. The patient's Coumadin will have to be stopped and anticoagulation reversed prior to proceeding with the biopsy. 2. Once tissue diagnosis is available, then prognosis and treatment options can be discussed with the patient. If the patient decides not to proceed with the biopsy, then agree with proceeding with best supportive care. BRIEF HISTORY: Mr. Flores is an 86-year-old male who was brought to the emergency room because of increasing weakness. The patient mentioned that he started feeling warm and weak and was unable to walk and get back to his bedroom. He asked his to contact emergency medical services who brought him to the emergency room. During the evaluation at the emergency room his liver function studies were found to be abnormal and CT scans of the abdomen and pelvis was done without contrast. This showed innumerable liver lesions, raising the possibility of metastatic disease. The patient was then admitted to the hospital for further management. Today he still complains of feeling weak. No fevers, chills, or night sweats. He denied any significant weight loss. Appetite has been fair. No diarrhea, constipation hematochezia or melena. No chest pain, palpitations, orthopnea or PND. ACTIVITY: Activity level is limited because of lower extremity pain and nonhealing ulcer on the right foot second toe for which he was undergoing wound care therapy. PAST MEDICAL HISTORY: 1. Significant for hypertension long-standing. 2. Coronary artery disease with 4 vessel CABG years ago. He has not required any stents since then. 3. Pacemaker insertion approximately 12 years ago with a recent change in the battery pack. 4. Significant peripheral vascular disease. 5. History of hypothyroidism that is long-standing. PAST SURGERIES: The patient is unsure about all surgeries he has had: Include: Cholecystectomy in the past, orthopedic surgery, 4 vessel CABG, placement of pacemaker/defibrillator , ETC. SOCIAL HISTORY: The patient is and lives with his in [place], [place]. They have no living children, but has 2 grandchildren age 22 and 25 years with one of them a student in [employer] and another student at [employer]. He gives 10 year history of smoking tobacco but has extensive history of chewing tobacco. He denied any significant alcohol or other recreational drug use. 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 He retired 25 years ago. FAMILY HISTORY: Unremarkable with no major medical problems. PHYSICAL EXAMINATION: Physical examination today showed an elderly male, morbidly obese, awake, and answering questions appropriately, does not appear in acute distress, but weak appearing. Temperature was 97.6, pulse rate of 71, respirations 20, blood pressure 131/71 with pulse oximetry showing 94% saturation on 2 liters of oxygen by nasal cannula. HEENT: Normocephalic, with male pattern baldness. Extraocular muscles intact. Conjunctivae pink, sclera anicteric, oral mucosa moist without lesions. NECK: Supple with no JVD. No cervical, supraclavicular, or axillary lymphadenopathy palpable. CHEST: Chest examination showed previous median sternotomy scar. Implanted defibrillator pacemaker was present. LUNGS: With diminished breath sounds in the left base with the rest of the lung dwyer fairly clear. No wheezes or rales heard. CARDIOVASCULAR EXAM: Regular in rate and rhythm. No murmurs or gallops heard. ABDOMEN: Obese, soft, nontender. Liver edge was palpable below the costal margin. No other masses palpable. EXTREMITIES: Showed nonhealing ulcer on the right second toe. Right foot slightly cooler to touch. Chronic pigmentary changes noted. NEUROLOGICAL EXAM: Showed no focal motor deficits. Overall motor strength was 4/5 bilaterally. LABORATORY: CBC done last night at the emergency room showed white count of 11.7, hemoglobin 10.9, platelet count of 167,000 with neutrophil count of 10.1. Chemistry panel showed relatively normal electrolytes. BUN was 31 and creatinine 1.45 with GFR of 46 mL per minute. Total bilirubin was 1.7, AST 44, alkaline phosphatase 299 and albumin level of 3.1. Troponin was less than 0.3, BNP was elevated at 447.4. TSH was 0.41. CT scan of the abdomen and pelvis showed innumerable low attenuation masses within the liver, incompletely viewed on the noncontrast exam but considered metastatic disease until proven otherwise. Cardiomegaly with bilateral pleural effusion with mild ascites and diffuse anasarca. Diverticulosis. Indeterminate cystic focus within the left kidney and renal ultrasound was recommended. CT scan of the chest showed multiple rounded nodules in the right lung base most compatible with metastatic disease. No evidence of primary neoplastic process in the chest by the noncontrast imaging. Cardiomegaly with small bilateral pleural effusions. Thank you for allowing me to participate in this patient's care. I will follow the patient with you and make appropriate recommendations. Job ID: [id number] Dictated Date: 05/05/2016 17:55:05 Community Health Educator Date: 05/06/2016 09:28:35/octavia HOOK
--- NOTE | 2016-05-06 10:22 | Progress Note-Hospitalist ---
Standard Progress Note Progress Notes/Assess & Plan Date Seen 05/06/16 Diagnosis 1.multiple radiolucent nodules in the liver consistent with metastasis from unknown primary. 2.abdominal aortic aneurysm. 3.nonhealing ulcer right foot Assess & Plan/Chief Complaint The patient's is present during today's visit. I had spoken to PACHECO Arreguin saw the patient late yesterday and at that time the patient allowed that he perhaps was interested in a biopsy and treatment if appropriate. This is a change from the preliminary discussion that the patient and I had. Today Niall Barry and I also discussed this with the patient and his and they are clear that they would wish to have a biopsy done. The patient is on Coumadin and will need to be off for several days before this would be possible. It would be their preference to let this happen by discontinuing the Coumadin rather than by reversing it. Physical exam: The patient appears somewhat stronger today. He was able to walk around the bed with a walker and sit in the bedside chair. Lungs are distant but clear. He is using O2 by nasal cannula. Abdomen is large and protuberant. There is a plus minus fluid wave. CV is regular without murmur. Ankles show 1+ pedal edema. There is an unhealed ulcer on the right second toe. Impression: Multiple hepatic nodules consistent with metastasis from unknown primary. 2.peripheral vascular disease. 3.congestive heart failure by history. 4.chronic O2 dependency. Plan: PT for evaluation and strengthening. Discontinue Coumadin. Labs Laboratory Tests 05/04/16 18:33 LULU BRO MD May 06, 2016 10:22
[2016-05-06 12:00] VITALS: BP 124/59
--- NOTE | 2016-05-06 13:18 | Physical Therapy Evaluation ---
PT Evaluation-General Medical Diagnosis Admission Date May 04, 2016 at 20:49 Medical Diagnosis: liver failure Onset Date: May 04, 2016 Therapy Diagnosis Therapy Diagnosis: generalized weakness/debility Height/Weight Height (Feet): 6 Height (Inches): 2.00 Weight (Pounds): 244 Weight (Ounces): 8.0 Precautions Precautions/Isolations: Fall Prevention, Standard Precautions Referral Physician: Dori Reason for Referral: Evaluation/Treatment Medical History Pertinent Medical History: Heart Failure, PVD Additional Medical History abdominal aneurysm Current History increased weakness and decreased bilateral LE circulation/inability to care for self new onset multiple liver masses Reviewed History: Yes Social History Home: Single Level Current Living Status: Spouse Prior/Core FIM Prior Level of Function Functional [place] Measure 0=Not Assessed/NA 4=Minimal Assistance 1=Total Assistance 5=Supervision or Setup 2=Maximal Assistance 6=Modified [place] 3=Moderate Assistance 7=Complete [place] Bed Mobility: 6 Transfers (B,C,W/C) (FIM): 6 Gait: 6 has 4WW PLOF PT Evaluation-Current Subjective Patient agrees to PT. Patient states he is very weak. Pain Numeric Pain Scale: 0-No Pain Location: No Pain Reported Objective Patient Orientation: Normal For Age Problem Solving: Good Attachments: Oxygen, IV ROM/Strength ROM Lower Extremities bilateral LE WFL Strenght Lower Extremities right knee flexion/extension 3/5; hip flexion 3/5; ankle dorsi/plantarflexion 3/ 5 left knee flexion/extension 3/5; hip flexion 3/5; ankle dorsi/plantarflexion 3/5 Integumentary/Posture Integumentary refer to nursing notes noted bilateral distal LE "weeping" serous fluid (yellow) Bowel Incontinence: No Bladder Incontinence: No Posture flexed hip posture in stand with 4WW Neuromuscular (Tone, Coordination, Reflexes) severely diminished coordination due to age and disease process Sensory Vision: Wears Glasses Hearing: Impaired Sensation Right Lower Extremit: Impaired Sensation Left Lower Extremity: Impaired Transfers Functional [place] Measure 0=Not Assessed/NA 4=Minimal Assistance 1=Total Assistance 5=Supervision or Setup 2=Maximal Assistance 6=Modified [place] 3=Moderate Assistance 7=Complete [place] Transfers (B, C, W/C) (FIM): 3 Scootin Rollin Supine to/from Sit: 3 Sit to/from Stand: 3 Gait Mode of Locomotion: Walk Anticipated Mode of Locomotion: Both Gait (FIM): 2 Distance (FIM): 4=644-10 ft Distance: 50' Gait Level of Assist: 4 Gait Persons Needed: 1 Gait Assistive Device: Walker 4 Wheeled Comments/Gait Description very slow, trunk flexed posture with shuffle gait sequence Balance Sitting Static: Normal Sitting Dynamic: Normal Standing Static: Fair Standing Dynamic: Fair Assessment/Needs 86 y.o. male, new onset liver masses, will benefit from short term skilled PT to address functional strength and mobility to improve current LOF. Patient is very limited in strength and mobility with noted abdominal distention. Rehab Potential: Poor Post Rehab Potential-Barriers: liver mets PT Short Term Goals Short Term Goals Time Frame: May 09, 2016 Transfers (B,C,W/C) (FIM): 4 Gait (FIM): 2 Distance (FIM): 7=133-97 ft Gait Distance Comment: 75' Gait Level of Assist: 4 Gait Assistive Device: Walker 4 Wheeled PT Plan Problem List Problem List: Activity Tolerance, Functional Strength, Safety, Balance, Gait, Transfer, Bed Mobility Treatment/Plan Treatment Plan: Continue Plan of Care Treatment Plan: Bed Mobility, Education, Functional Activity Letitia, Functional Strength, Gait, Safety, Therapeutic Exercise, Transfers Treatment Duration: May 09, 2016 # of days/week 4-5 Visits Per Week: 4-5 Pt/Family Agrees w/Plan: Yes Safety Risks/Education Patient Education: Transfer Techniques Teaching Recipient: Patient Teaching Methods: Demonstration, Discussion Response to Teaching: Verbalize Understanding, Return Demonstration Discharge Recommendations Therapy D/C Recommendations: Residential Placement Time/GCodes Time In: 1105 Time Out: 1120 Total Billed Treatment Time: 15 Total Billed Treatment 1 visit EVMod 15 min OVIDIO BISHOP PT May 06, 2016 13:18
--- NOTE | 2016-05-06 15:26 | Occupational Therapy Eval ---
OT Evaluation-General/PLF Medical Diagnosis Admission Date May 04, 2016 at 20:49 Medical Diagnosis: liver failure Onset Date: May 04, 2016 Therapy Diagnosis Therapy Diagnosis: weakness, decr self care, decr functional mobility, decr activity tolerance Height/Weight Height (Feet): 6 Height (Inches): 2.00 Weight (Pounds): 244 Weight (Ounces): 8.0 Precautions Precautions/Isolations: Fall Prevention, Standard Precautions Safety Interventions: None Referral Physician: Dori Referral Reason: Evaluation/Treatment Medical History Pertinent Medical History: GERD, Heart Failure, HTN, Hypothroidism, Neuropathy , PVD Additional Medical History Wounds on second and fifth toes R foot, decreased circulation lower extremities , cardiomegaly, AAA inoperable, CABG x4, polyps, chronic O2 use Current History Liver failure, liver metastatic cancer, renal insufficiency, non-healing ulcers R foot. Reviewed History: Yes Social History Home: Single Level Current Living Status: Spouse Entry Into Home: Ramp ADL-Prior Level of Function ADL PLOF Comments Pt reported he has been fairly independent with basic ADLs prior to illness. He has an accessible bathroom at home [facility]. 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 He is able to drive but hasn't due to decreased accuracy with gas pedal with R foot. Occupation: retired Drive Self: No OT Current Status Subjective Pt seen inroom, up in recliner, agreeable to OT. No pain mentioned Appearance Alert, cooperative, talkative Mental Status/Objective Attachments: IV, Oxygen Current Glasses/Contacts: Yes Upper Extremity ROM Grossly WFL bilat Upper Extremity Strength grossly 4/5 bilat Pt verbalized that he was weak in his elbows but muscle testing didn't indicate a difference ADL-Treatment ADL-Current Pt reported he has been able to feed himself. He needed mod assistance to get up with PT and hasn't been up to toilet except on BSC although he indicated that he's like to try the tall toilet and grab bars today. Functional [place] Measure 0=Not Assessed/NA 4=Minimal Assistance 1=Total Assistance 5=Supervision or Setup 2=Maximal Assistance 6=Modified [place] 3=Moderate Assistance 7=Complete IndependenceIRFPAI Quality Coding Scale 6 Independent with activity with or without an assistive device 5 Patient requires set up or clean up by helper. Patient completes activity by themselves 4 Supervision or touching assist (CGA). [place] provide cues , steadying assist 3 The helper provides less than half the effort to complete the activity 2 The helper provides more than half the effort to complete the activity 1 Dependent. The helper does all the effort to complete an activity 7 Patient refused to complete or attempt activity 9 The patient did not perform the activity before the current illness or injury 86 Not attempted due to Medical conditions or safety concerns Education OT Patient Education: Modified ADL techniques, Purpose of tx/functional activities, Rehab process, Use of adapted equipment Teaching Recipient: Patient Teaching Methods: Discussion Response to Teaching: Verbalize Understanding OT Short Term Goals Short Term Goals Transfers (B,C,W/C) (FIM): 4 OT Long-Term Goals [place] Goals Time Frame: May 13, 2016 Grooming(FIM): 6 Bathing(FIM): 5 Upper Body Dressing(FIM): 5 Lower Body Dressing(FIM): 5 Toileting(FIM): 5 Toilet/Commode Transfer(FIM): 5 Shower Transfer(FIM): 5 Additional Goals: 2-Verbalize Understanding, 3-ImproveStrength/Letitia 1=Demonstrate adherence to instructed precautions during ADL tasks. 2=Patient will verbalize/demonstrate understanding of assistive devices/ modifications for ADL. 3=Patient will improve strength/tolerance for activity to enable patient to perform ADL's. OT Education/Plan Problem List/Assessment Assessment: Decreased Activ Tolerance, Decreased UE Strength, Dependent Transfers, Impaired Funct Balance, Impaired Self-Care Skills Pt would benefit from skilled OT to increase his independence in basic self care to allow him to return home safely with . Discharge Recommendations Plan/Recommendations: Continue POC Therapy D/C Recommendations: Snf (TCU/NH) Treatment Plan/Plan of Care Treatment,Training & Education: Yes Patient would benefit from OT for education, treatment and training to promote independence in ADL's, mobility, safety and/or upper extremity function for ADL' s. Plan of Care: ADL Retraining, Functional Mobility, UE Funct Exercise/Act, UE Neuromus Re-Ed/Coord Treatment Duration: May 13, 2016 # of days/week 5 Visits Per Week: 5 Agreement: Yes Rehab Potential: Poor Time/GCodes Start Time: 11:30 Stop Time: 11:55 Total Time Billed (hr/min): 25 Billed Treatment Time visit, 25 minutes evaluation moderate intensity KATHARINE VINSON OT May 06, 2016 15:26
[2016-05-06] MEDS ORDERED: PATIENT MAY USE OWN MEDS, ALL MC SCH (15:45)
[2016-05-06 16:00] VITALS: BP 126/60
[2016-05-06] MEDS ORDERED: warFARin 5 MG (COUMADIN) TAB PO SCH (18:00)
[2016-05-06] MEDS: ACETAMINOPHEN 500 MG TAB (TYLENOL) PO SCH (20:44)
[2016-05-06] MEDS: diphenhydrAMINE 25 MG TAB (BENADRYL) PO SCH (20:44)
[2016-05-06] MEDS: FAMOTIDINE 20 MG (PEPCID) TABLET PO SCH (20:44)
[2016-05-06 20:49] LABS: BILIRUBIN,URINE NEGATIVE (NEGATIVE); KETONES,URINE NEGATIVE (NEGATIVE); LEUKOCYTE ESTERASE ,URINE 2+ (NEGATIVE); NITRITE,URINE NEGATIVE (NEGATIVE); PH,URINE 5 (5-9); PROTEIN,URINE 2+ (NEGATIVE); UROBILINOGEN,URINE NORMAL (NORMAL)
[2016-05-06 21:22] LABS: HYALINE CASTS, URINE 25-50 /LPF
[2016-05-07] VITALS: BP 125/70
[2016-05-07] MEDS: NS IV 1000 ML 1,000 ML IV SCH (04:47)
[2016-05-07] MEDS: FUROSEMIDE 40 MG (LASIX) TAB PO SCH (06:04)
[2016-05-07] MEDS: LEVOTHYROXINE 75 MCG (LEVOTHROID) TABLET PO SCH (06:04)
[2016-05-07 08:00] VITALS: BP 124/61
--- NOTE | 2016-05-07 10:11 | Progress Note-Hospitalist ---
Standard Progress Note Progress Notes/Assess & Plan Date Seen 05/07/16 Diagnosis 1.multiple radiolucent nodules in the liver consistent with metastasis from unknown primary. 2.abdominal aortic aneurysm. 3.nonhealing ulcer right foot Assess & Plan/Chief Complaint The patient is in the process of transferring from his bed to the bedside commode. This was observed. The distance was no more than 3 feet. He required attendant as he appeared wobbly and balance appeared to be a problem. He was able to stand only a very short period before sitting on the commode. He is alert and oriented. The plan is to transfer to [facility] today for physical therapy and strengthening. He will remain off of his Coumadin and I am awaiting a date and time next week for an outpatient percutaneous liver biopsy to be performed by Dr. Hairston. Physical exam: Lungs are clear to auscultation. CV is somewhat irregular. Abdomen is obese with a plus minus fluid wave. Extremities show no pedal edema. Impression: Multiple liver nodules compatible with the metastatic Malignancy site unknown. 2.nonhealing ulcer right second toe presumably ischemic. 3.marked deconditioning. 4.abdominal aortic aneurysm. Plan: Transfer to [facility] with physical and occupational therapy. 2.outpatient percutaneous liver biopsy early next week. LULU BRO MD May 07, 2016 10:11
[2016-05-07] MEDS: CHLORHEXIDINE 0.12% SOLN 15 ML (PERIDEX) UDC MM SCH (10:20)
[2016-05-07] MEDS: CARVEDILOL 3.125 MG (COREG) TABLET PO SCH (10:21)
[2016-05-07] MEDS: GABAPENTIN 300 MG (NEURONTIN) CAP PO SCH (10:21)
[2016-05-07] MEDS: SPIRONOLACTONE 25 MG (ALDACTONE) TAB PO SCH (10:21)
[2016-05-07] MEDS: ALLOPURINOL 300 MG (ZYLOPRIM) TAB PO SCH (10:21)
[2016-05-07] MEDS: KCL 20 MEQ TAB (K-DUR) PO SCH (10:22)
--- NOTE | 2016-05-07 10:42 | Discharge Inst-Skilled Nursing ---
Discharge Inst-Skilled NF Chief Complaint The patient is a gentleman only 86-year-old white male. His family has been known to me for some years. He presented to the emergency room late yesterday afternoon with complaints of generalized weakness. He has multiple vascular problems. He has been seeing wound care. His right second toe has been ulcerated for some time and he was to see a vascular surgeon in [place] tomorrow for consideration of revascularization. He also has a 5 cm abdominal aortic aneurysm which is considered inoperable because of his general health. 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 He is a DO NOT RESUSCITATE because of age and and general state of health. During his workup in the emergency room CT scan showed multiple nodules of varying size in the liver consistent with malignancy. There is no known primary. Patient Instructions Patient Problems: Generalized weakness and detuning Peripheral vascular disease Ischemic ulcers on right second toe Abdominal aortic aneurysm Multiple liver metastases primary unknown Goal: Improvement in his functional status so as to return home Patient Instructions: [place] [address]05/13/16 Present to outpatient on that date at 0700 Nothing by mouth after 12 midnight Consult/Follow Up/Orders Skilled NF Admit to: [facility] Certification ([facility]) I certify that SNF services are required to be given on an inpatient basis because of the above named patient's need for shelter care on a continuing basis for the conditions(s) for which he/she was receiving inpatient hospital services prior to his/her transfer to the SNF. Yes Senior Living Facility Order: Nursing Services, St[employer] Ripsaw Operator-Evaluate & Treat, Physical Therapy-Evaluate & Treat, Wound Care-Eval/Treat Discharge Diet: No Restrictions Daily Activity as Tolerated: Yes New & Resume Previous Orders Roberto Bro May 07, 2016 09:55 ROBERTO BRO MD May 07, 2016 10:06
--- NOTE | 2016-05-07 10:55 | Physical Therapy Daily Note ---
PT Daily Note-Current Subjective Pt discharging to [facility] today. Transfers Functional [place] Measure 0=Not Assessed/NA 4=Minimal Assistance 1=Total Assistance 5=Supervision or Setup 2=Maximal Assistance 6=Modified [place] 3=Moderate Assistance 7=Complete IndependenceIRFPAI Quality Coding Scale 6 Independent with activity with or without an assistive device 5 Patient requires set up or clean up by helper. Patient completes activity by themselves 4 Supervision or touching assist (CGA). [place] provide cues , steadying assist 3 The helper provides less than half the effort to complete the activity 2 The helper provides more than half the effort to complete the activity 1 Dependent. The helper does all the effort to complete an activity 7 Patient refused to complete or attempt activity 9 The patient did not perform the activity before the current illness or injury 86 Not attempted due to Medical conditions or safety concerns Treatments Assisted pt dress to prepare for transfer. Assisted to don underwear and sweatpants. Sit to stand with CGA and skilled cues to lean forward and push up from the chair. Min assist with initial standing balance. Pt stood while pants pulled up. Transfer chair to wheelchair taking 5-6 steps with 4WW with close CGA and skilled cues for sequencing and turning fully. Pt in chair post treatment to finish dressing and discharge. Nurse aide present. Assessment Pt progressing but recommend continued therapy services at [facility] to progress functional strength and mobility. PT Short Term Goals Short Term Goals Time Frame: May 09, 2016 Transfers (B,C,W/C) (FIM): 4 Gait (FIM): 2 Distance (FIM): 0=515-87 ft Gait Distance Comment: 75' Gait Level of Assist: 4 Gait Assistive Device: Walker 4 Wheeled PT Plan Problem List Problem List: Activity Tolerance Treatment/Plan Treatment Plan: Discontinue PT Treatment Plan: Bed Mobility, Education, Functional Activity Letitia, Functional Strength, Gait, Safety, Therapeutic Exercise, Transfers Treatment Duration: May 09, 2016 Visits Per Week: 4-5 Safety Risks/Education Patient Education: Transfer Techniques Teaching Recipient: Patient Teaching Methods: Discussion Response to Teaching: Reinforcement Needed Discharge Recommendations Plan DC PT. Recommned continued therapy services at MD> Time/GCodes Time In: 1038 Time Out: 1050 Total Billed Treatment Time: 12 Total Billed Treatment visit FA 12 VJ SANDHU PT May 07, 2016 10:55
[2016-05-07 12:54] VITALS: BP 124/61
--- NOTE | 2016-05-15 08:09 | Physician Query ---
PQ-Further Specificity Admission/Discharge Admission Date: May 04, 2016 at 20:49 Discharge Date: May 07, 2016 at 10:55 The medical record reflects the following clinical scenario: History/Risk Factors: 05/05 Consult: multiple small pulmonary nodules and bilateral pleural effusion Clinical Findings: CT scan of chest showed multiple rounded nodules in the right lung base most compatible with metastatic disease Treatment: Question: Can you further specify rounded nodules in the right lung base per the clinical indicators above? Please document below. 1. Metastatic lung disease 2. Nodules lung/pleural effusion 3. Other, with explanation of the clinical findings. 4. Clinically undetermined, no explanation for the clinical findings. PHYSICIAN RESPONSE Can you specify per above: 1 Explanation/Clinical Findings MULTIPLE PULMONARY NODULES. 2.MULTIPLE LIVER NODULES, NO KNOWN PRIMARY. GI WOULD BE FIRST CHOICE. LIVER WOULD BE BEST PLACE FOR SAFER BX, PT VERY DEBILITATED AND AT ME BEFORE CLEARING BLOOD THINNER TO ALLOW OUTPT NEEDLE BX Please remember a lack of response to the above will prompt a phone page by CDI/ coding staff. In responding to this query, please exercise your independent professional judgment. The purpose of this communication is to more accurately reflect the complexity of your patients condition. The fact that a question is asked does not imply that any particular answer is desired or expected. Thank you for your timely response to this clarification. Requestors name: [ ] Phone # [ ] THIS PHYSICIAN QUERY FORM IS A PERMANENT PART OF THE MEDICAL RECORD MARQUES GORDON May 15, 2016 08:09 LULU BRO MD May 29, 2016 15:21
--- NOTE | 2016-05-28 13:21 | Discharge Summary-Hospitalist ---
Diagnosis/Chief Complaint Date of Admission May 04, 2016 at 20:49 Date of Discharge May 07, 2016 at 10:55 Discharge Date: May 07, 2016 Admission Diagnosis 1.multiple radiolucent nodules in the liver consistent with metastasis from unknown primary. 2.abdominal aortic aneurysm. 3.nonhealing ulcer right foot Discharge Diagnosis Multiple nodules throughout the liver consistent with metastatic carcinoma primary unknown. 2.severe COPD 3.peripheral artery disease with nonhealing wound on toe Reason Hospital Visit/Course The patient is a gentleman only 86-year-old white male. His family has been known to me for some years. He presented to the emergency room late yesterday afternoon with complaints of generalized weakness. He has multiple vascular problems. He has been seeing wound care. His right second toe has been ulcerated for some time and he was to see a vascular surgeon in [place] tomorrow for consideration of revascularization. He also has a 5 cm abdominal aortic aneurysm which is considered inoperable because of his general health. 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 He is a DO NOT RESUSCITATE because of age and and general state of health. During his workup in the emergency room CT scan showed multiple nodules of varying size in the liver consistent with malignancy. There is no known primary. The CT scans were shared with the patient. He initially elected that given his general condition he saw no reason to pursue tissue diagnosis. He was quite debilitated and in fact had difficulty getting from his bed to the bedside commode. It was elected to pursue detention placement for the present as he was a large man and unable to walk or transfer independently. His family wished to pursue tissue diagnosis. He had been on oral anticoagulation and this was discontinued. He was transferred to [facility] for PT and OT. Outpatient CT-guided needle biopsy of the liver was scheduled for the Thursday following. Dori completing dictation Discharge Summary Discharge Physical Examination Allergies: Coded Allergies: diltiazem HCl (Verified Allergy, Unknown, 05/04/16) Hospital Course Labs (last 24 hrs) Microbiology 05/06/16 Urine Culture - Final, Complete Discharge Home Medications: Active Scripts Active Reported Tylenol Pm Ex-Strength Caplet (Acetaminophen/Diphenhydramine) 1 Each Tablet 2 Tab PO HS Daily Multiple Vitamin (Multivitamin) 1 Each Tablet 1 Tab PO HS K-Tab ER (Potassium Chloride) 10 Meq Tablet.er 20 Meq PO BID TAKES 2 (10MEQ) TABLETS Acid Grapple Operator (RANITIDINE) (Ranitidine HCl) 150 Mg Tablet 300 Mg PO HS TAKES 2 (150MG) TABLETS Ranitidine HCl 150 Mg Tablet 150 Mg PO DAILY Nexium (Esomeprazole Magnesium) 40 Mg Cap 40 Mg PO DAILY Niacin ER (Niacin) 500 Mg Tab.er.24h 500 Mg PO DAILY Allopurinol 300 Mg Tablet 300 Mg PO DAILY Carvedilol 3.125 Mg Tablet 3.125 Mg PO BID Furosemide 40 Mg Tablet 80 Mg PO BID TAKES 2 (40MG) TABLETS [place]-3 Acid Ethyl Esters 1 Gm Capsule 2 Gm PO BID TAKES 2 (1GM) CAPSULES Periogard (Chlorhexidine Gluconate) 473 Ml Mouthwash 15 Ml MM BID SWISH AND SPIT Gabapentin 300 Mg Capsule 600 Mg PO HS TAKES 2 (300MG) CAPSULES Gabapentin 300 Mg Capsule 300 Mg PO DAILY Simvastatin 20 Mg Tablet 20 Mg PO HS Spironolactone 25 Mg Tablet 12.5 Mg PO BID TAKES 1/2 (25MG) TABLET Levothyroxine Sodium 75 Mcg Tablet 75 Mg PO DAILY Instructions to patient/family Please see electonic discharge instructions given to patient. Clinical Quality Measures DVT/VTE Risk/Contraindication: Risk Factor Score Per Nursin RFS Level Per Nursing on Admit: 4+=Very High Copy Copies To 1: BROOKLYN FIELDS MD, RODNEY K MD May 28, 2016 13:21
== END 2016-05-07 10:55 | DRG 437 ==
LOC: EDUNIT# 18:19 → ER 18:20 → 4TH 20:49
PROVIDERS: ADMIT Internal Medicine; ATTEND Internal Medicine
DX: C78.7 Secondary malignant neoplasm of liver and intrahepatic bile duct (principal); K72.90 Hepatic failure, unspecified without coma; R91.8 Other nonspecific abnormal finding of lung field; F17.220 Nicotine dependence, chewing tobacco, uncomplicated; N28.9 Disorder of kidney and ureter, unspecified; Z66 Do not resuscitate; I73.9 Peripheral vascular disease, unspecified; L97.519 Non-pressure chronic ulcer of other part of right foot with unspecified severity; I71.4 Abdominal aortic aneurysm, without rupture; I11.0 Hypertensive heart disease with heart failure; I50.9 Heart failure, unspecified; I25.10 Atherosclerotic heart disease of native coronary artery without angina pectoris; E03.9 Hypothyroidism, unspecified; Z95.1 Presence of aortocoronary bypass graft; E66.01 Morbid (severe) obesity due to excess calories; Z68.31 Body mass index [BMI] 31.0-31.9, adult; Z99.81 Dependence on supplemental oxygen
CPT/HCPCS: 36415; 71010; 71250; 74176; 80053; 81000; 83690; 83880; 84439; 84443; 84484; 85007; 85027; 85610; 87088; 93005; 94760